=== PATIENT | male | born 1955 | race Caucasian/White ===

== ENCOUNTER 2017-05-31 10:15 | Day surgery (SDC) | payer OTHER ==
[2017-05-31] MEDS ORDERED: hydrALAzine 20 MG INJ IV (12:30)
[2017-05-31] MEDS ORDERED: EPHEDrine SULFATE 50 MG/5 ML SYG IV (12:30)
[2017-05-31] MEDS ORDERED: LABETALOL HCL 20MG INJ IV (12:30)
[2017-05-31] MEDS ORDERED: DIPHENHYDRAMINE 50 MG INJ IV (12:30)
[2017-05-31] MEDS ORDERED: METOCLOPRAMIDE 10 MG INJ IV (12:30)
[2017-05-31] MEDS ORDERED: FENTAnyl 50 MCG/ML VIAL IV ×3 (12:30)
[2017-05-31] MEDS ORDERED: MIDAZOLAM 1 MG/ML 2 ML INJ IV (12:30)
[2017-05-31] MEDS ORDERED: ROCURONIUM 50 MG INJ (12:41)
[2017-05-31] MEDS ORDERED: PROPOFOL 20 ML (12:41)
[2017-05-31] MEDS ORDERED: NEOSTIGMINE 3 MG/3 ML SYRINGE ×2 (12:41→12:47)
[2017-05-31] MEDS ORDERED: MEPERIDINE 100 MG INJ (12:41)
[2017-05-31] MEDS ORDERED: GLYCOPYRROLATE 0.4 MG INJ ×3 (12:41→12:47)
[2017-05-31] MEDS ORDERED: LIDOCAINE 2% (SDV) 5 ML INJ (12:41)
[2017-05-31] MEDS ORDERED: SUCCINYLCHOLINE CHLORIDE 100 MG/5 ML SYG IV (12:41)
[2017-05-31] MEDS ORDERED: CEFAZOLIN 1 GM INJ (12:47)
[2017-05-31] MEDS: CEFAZOLIN 1 GM/50 ML (PMX) 50 ML IVPB (14:00)
[2017-05-31] MEDS: BUPIVACAINE 0.5%/EPI (SDV) 30 ML INJ (14:04)
[2017-05-31] MEDS: ONDANSETRON 4 MG INJ IV (14:43)
[2017-05-31] MEDS: MEPERIDINE 25 MG INJ IV ×2 (14:56→15:17)
== END 2017-05-31 16:38 | disposition home or self-care (01) ==
LOC: SDS 10:15
DX: M75.41 Impingement syndrome of right shoulder (principal); M75.51 Bursitis of right shoulder; S43.491A Other sprain of right shoulder joint, initial encounter; X58.XXXA Exposure to other specified factors, initial encounter
CPT/HCPCS: 29822

== ENCOUNTER 2017-12-11 10:55 | Day surgery (SDC) | payer OTHER ==
[2017-12-11] MEDS ORDERED: PROPOFOL 60 ML (12:04)
[2017-12-11] MEDS ORDERED: LIDOCAINE 2% (SDV) 5 ML INJ (12:04)
[2017-12-11] MEDS ORDERED: MEPERIDINE 50 MG INJ (13:25)
== END 2017-12-11 14:37 | disposition home or self-care (01) ==
LOC: GIL 10:55
DX: Z12.11 Encounter for screening for malignant neoplasm of colon (principal); K63.5 Polyp of colon; K64.4 Residual hemorrhoidal skin tags; M19.90 Unspecified osteoarthritis, unspecified site; E78.5 Hyperlipidemia, unspecified; E66.01 Morbid (severe) obesity due to excess calories; Z68.28 Body mass index [BMI] 28.0-28.9, adult
CPT/HCPCS: 45385; 88305